=== PATIENT | male | born 1950 | race American Indian/Alaskan Native ===

== ENCOUNTER 2021-05-01 00:36 | Emergency (ER) | payer OTHER ==
--- NOTE | 2021-05-01 00:46 | Emergency Department Report ---
ED General Adult HPI - General Stated complaint: CHEST PAIN/HOMELESS Time Seen by Provider: 05/01/21 00:41 - History of Present Illness Initial comments: Patient presents by EMS with chest pain. He was actually being kicked out of his hotel. He called police as a way to get to a homeless [facility]ci. Police refused to transport. He then started complaining of chest pain. EMS was called to transport the patient here. Upon arrival here, the patient states that he has been having chest pain for 3 days. He states that this is been constant for 3 days. It is described as a tightness in the precordial area. The pain does not radiate or migrate. It is not specifically exertional, pleuritic, or positional. He is concerned because he had a three-vessel bypass approximately 1-1/2 years ago. He states that he was admitted here for a week last month. He was told that he had "a weak heart." Patient has no recent history of travel or trauma. He states he has been taking his medication. There is no swelling in the feet or ankles out of the ordinary. He has no cough or congestion. - Related Data Home Medications Medication Instructions Recorded Confirmed Last Taken Omeprazole 20 mg PO DAILY 04/02/21 04/02/21 04/01/21 Lanolin /Mo/W.pet/Matthews (Nf) 1 applicatio TP BID PRN 04/04/21 04/04/21 04/02/21 [EUCERIN (nf)] Previous Rx's Medication Instructions Recorded Last Taken Type Aspirin EC [Halfprin EC] 81 mg PO QDAY #30 04/05/21 Unknown Rx AtorvaSTATin [Lipitor] 20 mg PO QHS #30 tab 04/05/21 Unknown Rx ISOSORBIDE MONOnitrate [Imdur ER] 60 mg PO QDAY #30 tablet 04/05/21 Unknown Rx Metoprolol Xl [Metoprolol 100 mg PO QDAY #30 tablet 04/05/21 Unknown Rx SUCCINATE ER TAB] Allergies Allergy/AdvReac Type Severity Reaction Status Date / Time No Known Allergies Allergy Verified 05/01/21 00:45 ED Review of Systems ROS: Stated complaint: CHEST PAIN/HOMELESS Other details as noted in HPI Comment: All other systems reviewed and negative Constitutional: denies: fever Eyes: denies: vision change ENT: denies: throat pain Respiratory: denies: cough Cardiovascular: as per HPI Endocrine: denies: unexplained weight loss Gastrointestinal: denies: abdominal pain Genitourinary: denies: dysuria Musculoskeletal: denies: back pain Skin: denies: rash Neurological: denies: headache Hematological/Lymphatic: denies: easy bruising ED Past Medical Hx - Past Medical History Hx Hypertension: Yes Hx Heart Attack/AMI: Yes - Surgical History Hx Open Heart Surgery: Yes Additional Surgical History: triple bypass - Family History Family history: hypertension - Social History Smoking Status: Never Smoker - Medications Home Medications: Home Medications Medication Instructions Recorded Confirmed Last Taken Type Omeprazole 20 mg PO DAILY 04/02/21 04/02/21 04/01/21 History Lanolin /Mo/W.pet/Matthews (Nf) 1 applicatio TP BID PRN 04/04/21 04/04/21 04/02/21 History [EUCERIN (nf)] Aspirin EC [Halfprin EC] 81 mg PO QDAY #30 04/05/21 Unknown Rx AtorvaSTATin [Lipitor] 20 mg PO QHS #30 tab 04/05/21 Unknown Rx ISOSORBIDE MONOnitrate [Imdur ER] 60 mg PO QDAY #30 tablet 04/05/21 Unknown Rx Metoprolol Xl [Metoprolol 100 mg PO QDAY #30 tablet 04/05/21 Unknown Rx SUCCINATE ER TAB] ED Physical Exam - General Limitations: No Limitations, Other (Pulse ox noted and normal by EMS) General appearance: alert, in no apparent distress - Head Head exam: Present: atraumatic, normocephalic, normal inspection - Eye Eye exam: Present: normal appearance, EOMI. Absent: scleral icterus - ENT ENT exam: Present: normal exam, normal external ear exam - Neck Neck exam: Present: normal inspection. Absent: meningismus - Respiratory Respiratory exam: Present: normal lung sounds bilaterally. Absent: respiratory distress - Cardiovascular Cardiovascular Exam: Present: regular rate, normal rhythm - GI/Abdominal GI/Abdominal exam: Present: soft. Absent: tenderness - Extremities Exam Extremities exam: Present: normal capillary refill. Absent: pedal edema, calf tenderness - Back Exam Back exam: Absent: CVA tenderness (R), CVA tenderness (L) - Neurological Exam Neurological exam: Present: alert, oriented X3, CN II-XII intact, normal gait, reflexes normal. Absent: motor sensory deficit - Psychiatric Psychiatric exam: Present: normal affect, normal mood - Skin Skin exam: Present: warm, dry ED Course Vital Signs 05/01/21 05/01/21 05/01/21 00:44 00:59 01:00 Temperature 97.8 F Pulse Rate 59 L 57 L 57 L Respiratory 19 20 22 Rate Blood Pressure Blood Pressure 171/85 [Left] O2 Sat by Pulse 100 100 100 Oximetry 05/01/21 05/01/21 05/01/21 01:05 01:17 01:30 Temperature Pulse Rate 57 L Respiratory 17 Rate Blood Pressure Blood Pressure [Left] O2 Sat by Pulse 98 100 100 Oximetry 05/01/21 05/01/21 05/01/21 01:46 02:00 02:16 Temperature Pulse Rate 57 L 55 L 56 L Respiratory 15 15 13 Rate Blood Pressure 177/83 152/87 152/87 Blood Pressure [Left] O2 Sat by Pulse 100 100 100 Oximetry 05/01/21 05/01/21 05/01/21 02:30 02:46 03:00 Temperature Pulse Rate 60 56 L 54 L Respiratory 16 16 18 Rate Blood Pressure 154/94 154/94 154/94 Blood Pressure [Left] O2 Sat by Pulse 96 100 99 Oximetry 05/01/21 05/01/21 03:16 03:30 Temperature Pulse Rate 57 L 55 L Respiratory 18 14 Rate Blood Pressure 155/105 155/94 Blood Pressure [Left] O2 Sat by Pulse 96 97 Oximetry - Reevaluation(s) Reevaluation #1: 05/01/21 00:45 EMS was met upon arrival. IV and labs ordered. EKG was ordered. Old records reviewed. Reevaluation #2: 05/01/21 03:59 Work-up is complete and the patient was discharged. ED Medical Decision Making - Lab Data Result diagrams: 05/01/21 01:05 05/01/21 01:05 Rhythm strip: Normal sinus rhythm without ectopy per monitor observe 10 seconds. - EKG Data -: EKG Interpreted by Me - EKG Data When compared to previous EKG there are: no significant change 05/01/21 01:07 EKG shows sinus bradycardia 57. Intervals are normal including a QRS of 83 and a QT corrected of 171. Patient has persistent T wave inversions in 1 and aVL. There is no ST elevation to suggest STEMI. There is poor R wave progression. When compared to an EKG from March of this year done at this facility, there is no significant change. - Radiology Data Radiology results: report reviewed - Medical Decision Making Patient presented by ambulance for chest pain. He reportedly developed this for the last several days but did not report it until after he was being evicted from his hotel. Regardless, there is no evidence of STEMI or NSTEMI. He has no radiographic evidence of pneumonia or pneumothorax. He does not have a wide mediastinum or pulse tested to suggest aortic dissection. Patient has no trauma that would suggest rib fracture. He has no risk factor for pulmonary embolism. Wells score is low. He was subsequently discharged with outpatient follow-up. Critical Care Time: No Critical care attestation.: If time is entered above; I have spent that time in minutes in the direct care of this critically ill patient, excluding procedure time. ED Disposition Clinical Impression: Precordial chest pain Disposition: HOME / SELF CARE / HOMELESS Is pt being admited?: No Condition: Stable Instructions: Nonspecific Chest Pain, Adult Additional Instructions: Take your medication. Drink plenty water. Return for problems. 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
[2021-05-01 01:20] LABS: Hematocrit 28.4 % (35.5-45.6); Hemoglobin 9.3 gm/dl (11.8-15.2); Mean Corpuscular HGB Conc 33 % (32-34); Mean Corpuscular Volume 94 fl (84-94); Platelet Count 168 K/mm3 (140-440); Red Blood Count 3.03 M/mm3 (3.65-5.03); Red Cell Distribution Width 13.4 % (13.2-15.2)
--- NOTE | 2021-05-01 01:26 | XRay Report ---
XR chest routine 2V INDICATION / CLINICAL INFORMATION: cp. COMPARISON: 04/02/2021 FINDINGS: SUPPORT DEVICES: None. HEART /PULMONARY VASCULATURE: Median sternotomy changes. Heart is enlarged. No significant pulmonary vasculature congestion. LUNGS / PLEURA: No significant pulmonary or pleural abnormality. No pneumothorax. ADDITIONAL FINDINGS: No significant additional findings. IMPRESSION: 1. No acute findings. Signer Name: Fletcher Jordan MD Signed: 05/01/2021 1:21 AM Workstation Name: [employer]-[id number]
[2021-05-01 01:38] LABS: Calcium 8.4 mg/dL (8.4-10.2)
[2021-05-01 02:42] LABS: Chol/HDL Ratio 3.45 %
[2021-05-01 03:37] VITALS: BP 155/94
--- NOTE | 2021-05-03 10:10 | Electrocardiograph Report ---
[facility] Test Date: 2021-05-01 Test Time: 01:01:26 Pat Name: DAVEY SLAUGHTER Department: Room: Gender: M Physical Therapy Resident: M-DISC : 1950 Requested By: JAKE OLSON Order Number: [id number] Reading MD: Shaye Denis Measurements Intervals [place] Rate: 57 P: -11 SD: 169 QRS: 25 QRSD: 83 T: 105 QT: 482 QTc: 471 Interpretive Statements Sinus bradycardia Left atrial enlargement Nonspecific ST and T wave change Poor R wave progression Compared to ECG 04/04/2021 11:20:34 Myocardial infarct finding now present T-wave abnormality now present Possible ischemia now present Sinus rhythm no longer present Electronically Signed On 05-03-2021 10:09:59 EST by Shaye Denis
== END 2021-05-01 05:13 | disposition home or self-care (01) ==
LOC: ED 00:36
DX: R07.2 Precordial pain (principal); I10 Essential (primary) hypertension; Z79.899 Other long term (current) drug therapy
CPT/HCPCS: 36415; 71046; 80048; 80061; 84484; 85027; 93005; 99284